=== PATIENT | female | born 1945 | race Caucasian/White ===

== ENCOUNTER 2021-01-10 12:06 | Emergency (ER) | payer MEDICARE, SELFPAY ==
[2021-01-10 12:50] VITALS: BP 133/60; PULSE 65; RESP 16; TEMP 36.9; O2SAT 98; BMI 25.7
--- NOTE | 2021-01-10 13:07 | ED.GENADULT ---
HPI - General Adult General Chief complaint: Ear Problems Stated complaint: lump on ear Time Seen by Provider: 01/10/21 13:07 History of Present Illness HPI narrative: Patient complains of a bump on her ear that is been present for over a month that sometimes leaks clear fluid, no pain no fever Related Data Allergies Allergy/AdvReac Type Severity Reaction Status Date / Time lisinopril [LISINOPRIL] Allergy Unknown HACKING Unverified 04/27/20 19:20 COUGH Review of Systems Review of Systems: Positive for small nodule on left ear Negatives are no fever no chills no dizziness no weakness no earache no sore throat no loss of hearing no vision changes no neck pain no headache Yes all other systems are reviewed and are negative PMFSH Past Medical History Source: nursing notes reviewed Social History Social History Advance Directives: No Advance Directives Information Provided: No Physical Exam Vital Signs: Vital Signs: Last Vital Signs Temp 98.5 F 01/10/21 12:50 Pulse 65 01/10/21 12:50 Resp 16 01/10/21 12:50 BP 133/60 01/10/21 12:50 Pulse Ox 98 01/10/21 12:50 Body Mass Index 25.7 General appearance no distress Left external ear, antihelix has a small nodule that is mildly abraded, it is not red it is not warm it is not fluctuant Below it is a very small scabbed area again no surrounding erythema no fluctuance no significant tenderness Tympanic membrane is normal Right ear has normal appearance with normal tympanic membrane No sinus tenderness Pharynx is normal Neck is supple Respiratory no distress Skin no rashes Course Course Course Narrative: The small nodule was aspirated with an 18 gauge needle, there was no fluid collection nothing to drain just a couple of drops of blood and patient is advised that any long-lasting lump on sun-exposed skin should be evaluated by surgeon and possibly biopsied to rule out skin cancer Discharge Plan Discharge Clinical Impression: Nodule of external ear Patient Disposition: Home, Self-Care Additional Instructions: Any sore that lasts for many weeks on a sun-exposed area could be a skin cancer so I advised close follow-up with primary care doctor for referral for a biopsy or further evaluation, or you could try our surgeon to see if he does this kind of evaluation I aspirated the small bump on her ear and only a couple of drops of blood came out there was no watery fluid or pus is your experiencing before You could apply bacitracin but no other treatment except for follow-up for evaluation for possible biopsy to rule out skin cancer Return any concerns Referrals: Sloan Rice MD [Physician] - 2 days (Nodule and sore on ear, may need to be biopsied as it is a sun-exposed area) Interventions: ED Discharge Assessment Last Done: 01/10/21 13:29 Discharge Date/Time: 01/10/21 13:35
== END 2021-01-10 13:35 | disposition home or self-care (01) ==
PROVIDERS: Emergency Provider Emergency Medicine; PCP Internal Medicine
DX: H61.891 Other specified disorders of right external ear (principal)
CPT/HCPCS: 99283